=== PATIENT | male | born 1960 | race Caucasian/White ===

== ENCOUNTER 2020-10-24 09:10 | Outpatient (CLI) | payer BC, SELFPAY ==
--- NOTE | ~2020-10-24 | PE_ITS ---
EXAMINATION: PET skull to mid thigh DATE: 10/24/2020 11:05 INDICATION: Basal cell carcinoma of the skin TECHNIQUE: 10 mCi of 18-fluorodeoxyglucose (18-FDG) was administered i.v. Low dose computed tomograph y (CT) images were acquired from the base of the brain to the proximal thighs for attenuation correct ion and anatomic localization. Positron emission tomography (PET) images were acquired after injectio n. Images including fused PET/CT images were reconstructed in axial, coronal, and sagittal planes. Au tomatic exposure control is employed as a dose reduction technique. COMPARISON: None FINDINGS: Head/neck: No cervical lymphadenopathy. No hypermetabolic activity in the neck. Chest: Mild mediastinal lymphadenopathy without abnormal FDG uptake, likely reactive. No significant pleural or pericardial effusion. Heart size is normal. Mild emphysema. There is a calcified granuloma in the right upper lobe. There is a 4 mm right upper lobe nodule without abnormal FDG uptake, likely granul omatous disease. Dependent atelectasis. There is a 6 mm nodule in the superior segment left lower lob e without abnormal FDG uptake. Abdomen/pelvis/proximal thighs: There are small low-density lesions of the left kidney without abnormal FDG uptake, most likely benig n cysts or hemangioma. The spleen, pancreas, adrenal glands and kidneys are unremarkable. Gallbladder is present. Small fat-containing umbilical hernia. 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 No free air or free fluid. Bones/Soft tissues: No hypermetabolic activity is identified in the bones or soft tissues. IMPRESSION: 1. No evidence for metastatic disease. 2: Bilateral pulmonary nodules, largest in the left lower lobe measuring 6 mm without abnormal FDG up take, likely benign granulomatous disease. Follow-up CT chest in 6 months recommended. 3: Mediastinal lymphadenopathy without abnormal FDG uptake, likely reactive. Reviewed, dictated and finalized at location B. [facility]INTEND[facility] TRACK IMPRESSION: 1. No evidence for metastatic disease. 2: Bilateral pulmonary nodules, largest in the left lower lobe measuring 6 mm w ithout abnormal FDG uptake, likely benign granulomatous disease. Follow-up CT c hest in 6 months recommended. 3: Mediastinal lymphadenopathy without abnormal FDG uptake, likely reactive.
[2020-10-24 09:28] LABS: Glucose Point of Care 97 (65-105)
== END 2020-10-24 09:11 | disposition home or self-care (01) ==
PROVIDERS: PCP Family Medicine; Visit Provider Family Medicine
DX: R91.8 Other nonspecific abnormal finding of lung field (principal)
CPT/HCPCS: 78815; 82948; A9552

== ENCOUNTER 2020-11-25 10:15 | Outpatient (CLI) | payer BC, SELFPAY | END 2020-11-25 10:16 | disposition home or self-care (01) | LOC: ANHCOVIDVC 10:15 | PROVIDERS: PCP Family Medicine | DX: Z23 Encounter for immunization (principal) | CPT/HCPCS: 0001A; 91300 ==

== ENCOUNTER 2020-12-16 10:15 | Outpatient (CLI) | payer BC, SELFPAY | END 2020-12-16 10:16 | disposition home or self-care (01) | LOC: ANHCOVIDVC 10:15 | PROVIDERS: PCP Family Medicine | DX: Z23 Encounter for immunization (principal) | CPT/HCPCS: 0002A; 91300 ==